=== PATIENT | female | born 1960 | race African-American/Black ===

== ENCOUNTER 2016-12-18 05:20 | Day surgery (SDC) | payer OTHER ==
[2016-12-17 12:37] VITALS: BMI 31.0
[2016-12-18 13:37] VITALS: TEMP 97.9
[2016-12-18] MEDS ORDERED: MIDAZOLAM HCL 2 MG/2 ML SINGLE DOSE VIAL ONE (14:00)
[2016-12-18] MEDS ORDERED: PROPOFOL 20 ML ONE (14:00)
[2016-12-18] MEDS ORDERED: LIDOCAINE HCL/PF 2% SDV 5ML VIAL ONE (14:02)
[2016-12-18] MEDS ORDERED: DEXAMETHASONE SOD PHOSPHATE 4 MG/1 ML VIAL ONE (14:38)
[2016-12-18] MEDS ORDERED: KETOROLAC TROMETHAMINE 30 MG/1 ML VIAL ONE (14:54)
[2016-12-18] MEDS ORDERED: ACETAMINOPHEN 325 MG TABLET (FP) PO PRN (15:12)
[2016-12-18] MEDS ORDERED: PROMETHAZINE HCL 25 MG/1 ML VIAL IVPUSH PRN (15:12)
[2016-12-18] MEDS ORDERED: IBUPROFEN 800 MG/8 ML IJ IVPB PRN (15:13)
[2016-12-18] MEDS ORDERED: IBUPROFEN 600 MG TABLET (FP) PO PRN (15:13)
[2016-12-18] MEDS ORDERED: oxyCODONE HCL 5 MG TABLET PO PRN (15:13)
[2016-12-18] MEDS ORDERED: ONDANSETRON 4 MG/2 ML VIAL IVPB PRN (15:13)
[2016-12-18] MEDS ORDERED: LACTATED RINGERS SOLUTION 1,000 ML IV SCH (15:15)
[2016-12-18] MEDS ORDERED: ELECTROLYTE-148 SOLN 1,000 ML IV SCH (15:15)
--- NOTE | 2016-12-18 15:25 | HP ---
Past Medical History - Primary Care Physician PCP:: Bayron Perez - Admission Chief Complaint: menometrorrhagia, fibroid uterus History of Present Illness: 56 yo f c/o irregular vaginal bleeding , sono large submucosal fibroid admitted for hysteroscopy, possible mtomectomy, risks discussed, aware risks of infection , bleeding, perforation, injury to surrounding tissue,and anesthesia and post op complication History Source: Patient Limitations to Obtaining History: No Limitations - Past Medical History Cardiovascular: Yes: HTN - Past Surgical History Past Surgical History: Yes: Hx Myomectomy: No Hx Transabdominal Cerclage: No - Smoking History Smoking history: Never smoked Have you smoked in the past 12 months: Yes Aproximately how many cigarettes per day: 0 - Alcohol/Substance Use Hx Alcohol Use: Yes (SOCIALLY) - Social History History of Recent Travel: No Home Medications - Allergies Allergies/Adverse Reactions: Allergies Allergy/AdvReac Type Severity Reaction Status Date / Time No Known Allergies Allergy Verified 12/18/16 13:46 - Home Medications Home Medications: Ambulatory Orders Lisinopril [Prinivil] 10 mg PO DAILY 04/30/12 Review of Systems - Review of Systems Constitutional: reports: No Symptoms Eyes: reports: No Symptoms HENT: reports: No Symptoms Neck: reports: No Symptoms Cardiovascular: reports: No Symptoms Respiratory: reports: No Symptoms Gastrointestinal: reports: No Symptoms Genitourinary: reports: Vaginal Bleeding Breasts: reports: No Symptoms Reported Musculoskeletal: reports: No Symptoms Integumentary: reports: No Symptoms Neurological: reports: No Symptoms Endocrine: reports: No Symptoms Hematology/Lymphatic: reports: No Symptoms Physical Exam-[employer] Vital Signs: Vital Signs Temperature 97.9 F 12/18/16 13:39 Pulse Rate 78 12/18/16 13:39 Respiratory Rate 20 12/18/16 13:39 Blood Pressure 109/66 12/18/16 13:39 O2 Sat by Pulse Oximetry (%) 100 12/18/16 13:39 Constitutional: Yes: Well Nourished, No Distress, Calm Eyes: Yes: WNL, Conjunctiva Clear, EOM Intact HENT: Yes: WNL, Atraumatic, Normocephalic Neck: Yes: WNL, Supple, Trachea Midline Cardiovascular: Yes: WNL, Regular Rate and Rhythm Respiratory: Yes: WNL, Regular, CTA Bilaterally Gastrointestinal: Yes: WNL ...Rectal Exam: Yes: WNL Renal/: Yes: WNL External Genitalia: Yes: Normal Vaginal Exam: Yes: Normal Cervix: Yes: Normal Uterus: Yes: Enlarged, Firm, Retroverted Adnexa: Not Palpable: Left, Right Breast(s): Yes: WNL Musculoskeletal: Yes: WNL Extremities: Yes: WNL Edema: No Integumentary: Yes: WNL Neurological: Yes: WNL, Alert, Oriented ...Motor Strength: WNL Psychiatric: Yes: WNL, Alert, Oriented Problem List - Problem (1) Menometrorrhagia Code(s): N92.1 - EXCESSIVE AND FREQUENT MENSTRUATION WITH IRREGULAR CYCLE (2) Fibroids, submucosal Code(s): D25.0 - SUBMUCOUS LEIOMYOMA OF UTERUS Assessment/Plan hysteroscopy D&C. possible myomectomy
[2016-12-18 17:10] VITALS: BP 111/66; PULSE 62
--- NOTE | 2016-12-22 13:41 | PATH ---
Surgical Pathology Report Patient Name: DESTINY MEDINA [facility]. Rec. #: [id number] /Age/Gender: 1960 (Age: 56) / F Account: [id number] Location: [facility] SURGICAL Taken: 12/18/2016 Received: 12/19/2016 Reported: 12/22/2016 Physicians: Bayron Perez M.D. Specimen(s) Received ENDOMETRIAL CURETTINGS Clinical History Menorrhagia, uterine fibroid Final Diagnosis ENDOMETRIUM, CURETTAGE: FRAGMENTS OF INACTIVE ENDOMETRIUM WITH STROMAL BREAKDOWN CHANGE. FRAGMENTS OF BENIGN ENDOCERVICAL TISSUE WITH SQUAMOUS METAPLASIA. Electronically Signed Parker Fay M.D. Gross Description Received in formalin labeled "endometrial curettage" is a 3.7 x 3.5 x 0.5 cm aggregate of haynes soft tissue fragments admixed with blood clot. The formalin is filtered and the specimen is entirely submitted in 3 cassettes. /12/19/2016 saudi12/19/2016
--- NOTE | 2017-01-28 06:52 | OP ---
DATE OF OPERATION: 12/18/2016 PREOPERATIVE DIAGNOSIS: Menometrorrhagia, uterine fibroid. POSTOPERATIVE DIAGNOSIS: Menometrorrhagia, uterine fibroid. PROCEDURE: Hysteroscopy, dilatation and curettage. SURGEON: Bayron Perez MD ANESTHESIA: General. ESTIMATED BLOOD LOSS: 50 mL. DESCRIPTION OF PROCEDURE: The patient was taken to the operating room, and under adequate general anesthesia, examination under anesthesia revealed external genitalia to be normal. Vagina was normal. Cervix was clean, no lesion. Uterus was irregular, enlarged. Adnexa, no masses were palpable. Then, with a weighted speculum in the vagina, anterior lip of the cervix was grasped with a single-tooth tenaculum, and cervical curetting was done. Then, cervix was slightly dilated. Then hysteroscope was introduced. Visualization of the endocervical canal appeared to be normal. Uterine cavity was slightly irregular and there was a fibroid in the fundal area, which was pushing into the endometrial cavity consistent with intramural myoma. Endometrium was irregular. No polyp was found. Both cornual regions were visualized. Then, the hysteroscope was withdrawn, and then, cervix was gradually dilated with Hegar dilator, and then, the uterine cavity was curetted. Patient tolerated the procedure well, left the OR in good condition. BAYRON PEREZ M.D. [id number]
== END 2016-12-18 16:50 | disposition home or self-care (01) ==
LOC: JASU-SURG 05:20
PROVIDERS: ATTEND Obstetrics & Gynecology
PROC: 0UDB8ZX Extraction of Endometrium, Via Natural or Artificial Opening Endoscopic, Diagnostic (ICD-10-PCS; principal; 2016-12-18 15:00)
DX: N92.1 Excessive and frequent menstruation with irregular cycle (principal); D25.9 Leiomyoma of uterus, unspecified
CPT/HCPCS: 84703; 86850; 86900; 86901; 88305-TC; 94760